=== PATIENT | female | born 1945 | race Caucasian/White ===

== ENCOUNTER 2016-04-25 16:44 | Outpatient (CLI) | payer MEDICARE ==
--- NOTE | 2016-04-25 17:58 | XRAY Preliminary Report ---
Exam: XR Foot 3 View LT IMPRESSION: Fifth metatarsal fracture. [facility] SITE ID: [id number]
--- NOTE | 2016-04-25 19:08 | XRAY Report ---
EXAM: LEFT FOOT RADIOGRAPHY EXAM DATE: 04/25/2016 05:33 PM. CLINICAL HISTORY: Pain after injury. COMPARISON: None. TECHNIQUE: 3 views. FINDINGS: Bones: Acute oblique fracture involving the mid third fifth metatarsal diaphysis with 5 mm medial and 6 mm proximal displacement of the distal fracture fragment relative to the proximal. Joints: Normal. No subluxations. Soft Tissues: Edema adjacent to the fracture. IMPRESSION: Fifth metatarsal fracture. [facility] Referring Provider Line: [phone] SITE ID: [id number]
== END 2016-04-25 16:45 | disposition home or self-care (01) ==
LOC: DI 16:44
PROVIDERS: ATTEND Podiatrist
DX: S92.352A Displaced fracture of fifth metatarsal bone, left foot, initial encounter for closed fracture (principal)

== ENCOUNTER 2016-06-27 14:48 | Outpatient (CLI) | payer MEDICARE | END 2016-06-27 14:49 | disposition home or self-care (01) | DX: S92.352D Displaced fracture of fifth metatarsal bone, left foot, subsequent encounter for fracture with routine healing (principal) ==

== ENCOUNTER 2017-05-26 12:13 | Outpatient (CLI) | payer MEDICARE ==
--- NOTE | 2017-05-26 12:59 | XRAY Report ---
TWO VIEW CHEST: 05/26/2017 CLINICAL INDICATION: Cough, remote history of positive PPD. FINDINGS: Frontal and lateral views of the chest demonstrate a normal cardiac silhouette. The lungs are clear. No effusion or pneumothorax is present. IMPRESSION: NORMAL CHEST. NO EVIDENCE OF ACTIVE TUBERCULOSIS. TD: 05/26/2017 12:58
== END 2017-05-26 12:14 | disposition home or self-care (01) ==
LOC: DI.S 12:13
PROVIDERS: ATTEND Physician Assistant
DX: R05 Cough (principal)
CPT/HCPCS: 71046

== ENCOUNTER 2017-08-17 10:42 | Outpatient (CLI) | payer MEDICARE ==
--- NOTE | 2017-08-18 13:50 | Mammography Report ---
Procedure Date: 08/17/2017 Accession Number: [id number] / [id number] Procedure: NICK - Screening Mammo Dig Bilat CPT Code: FULL RESULT: EXAM: Screening Mammo Dig Bilat DATE: 08/17/2017 11:07 AM CLINICAL HISTORY: 72-year-old with history of late childbearing for screening TECHNIQUE: Bilateral CC and MLO views were obtained. COMPARISON: 12/18/2015, 01/31/2014, 12/20/2012, 05/19/2011, 07/09/2009 FINDINGS: The breasts demonstrate diffuse fatty replacement bilaterally. Coarse and punctate, typically benign calcifications are present. No suspicious masses, clustered microcalcifications, or regions of architectural distortion are identified. IMPRESSION: Benign findings RECOMMENDATION: Routine annual screening unless otherwise clinically indicated. BIRADS CATEGORY 2: Benign findings STANDARD QUALIFYING STATEMENTS: 1. This examination was reviewed with the aid of Computer-Aided Detection (CAD). 2. A negative or benign imaging report should not delay biopsy if clinically suspicious findings are present. Consider surgical consultation if warrented. More than 5% of cancers are not identified by imaging. 3. Dense breasts may obscure an underlying neoplasm.
== END 2017-08-17 10:43 | disposition home or self-care (01) ==
LOC: DI 10:42
PROVIDERS: ATTEND Physician Assistant
DX: Z12.31 Encounter for screening mammogram for malignant neoplasm of breast (principal)
CPT/HCPCS: 77067

== ENCOUNTER 2017-09-19 10:50 | Outpatient (CLI) | payer MEDICARE ==
--- NOTE | 2017-09-19 13:27 | XRAY Report ---
Procedure Date: 09/19/2017 Accession Number: [id number] / [id number] Procedure: XRS - Hand 3 View LT CPT Code: FULL RESULT: EXAM: Hand 3 View LT DATE: 09/19/2017 11:04 AM CLINICAL HISTORY: L HAND INJURY-DIGIT 4 COMPARISON: 02/17/2010. TECHNIQUE: 3 views. FINDINGS: Bones: Normal. No fractures or bone lesions. Joints: Minimal degenerative changes of the distal interphalangeal joints most pronounced in the third ray. Soft Tissues: Normal. No soft tissue swelling. IMPRESSION: No acute hand injury is detected. [facility]
== END 2017-09-19 10:51 | disposition home or self-care (01) ==
LOC: DI.S 10:50
PROVIDERS: ATTEND Nurse Practitioner Family
DX: S69.92XA Unspecified injury of left wrist, hand and finger(s), initial encounter (principal)

== ENCOUNTER 2018-08-20 11:09 | Outpatient (CLI) | payer MEDICARE ==
--- NOTE | 2018-08-21 09:32 | Mammography Report ---
Reason: ENCOUNTER FOR SCREENING MAMMOGRAM FOR MALIGNANT NE Procedure Date: 08/20/2018 Accession Number: [id number] / [id number] Procedure: MGS - Screening Mammo Dig Bilat CPT Code: FULL RESULT: EXAM: Screening Mammo Dig Bilat DATE: 08/20/2018 11:34 AM CLINICAL HISTORY: Screening examination. History of late childbearing. TECHNIQUE: (B) - Bilateral CC and MLO views were obtained. COMPARISON: 08/17/2017 through 12/30/2012. PARENCHYMAL PATTERN: (A) - The breast(s) demonstrate(s) scattered fibroglandular densities. FINDINGS: A coarse typically benign calcification is seen in the left breast. There are no suspicious masses, calcifications, or areas of distortion. IMPRESSION: Benign findings. BI-RADS category 2. RECOMMENDATION: (ANNUAL) - Recommend routine annual screening mammography. BI-RADS CATEGORY: (2) - Benign Findings. STANDARD QUALIFYING STATEMENTS: 1. This examination was reviewed with the aid of Computer-Aided Detection (CAD). 2. A negative or benign imaging report should not preclude biopsy if clinically suspicious findings are present. 3. Dense breasts may obscure an underlying neoplasm. 4. This examination was reviewed without the aid of 3D breast imaging (tomosynthesis).
== END 2018-08-20 11:10 | disposition home or self-care (01) ==
LOC: DI.S 11:09
PROVIDERS: ATTEND Physician Assistant
DX: Z12.31 Encounter for screening mammogram for malignant neoplasm of breast (principal)
CPT/HCPCS: 77067

== ENCOUNTER 2018-08-20 11:10 | Outpatient (CLI) | payer MEDICARE ==
--- NOTE | 2018-08-20 14:38 | XRAY Report ---
Reason: UNSPECIFIED FRACTURE OF LEFT TOE,SUBSEQUENT ENCOUN Procedure Date: 08/20/2018 Accession Number: [id number] / [id number] Procedure: XRS - Foot 2 View LT CPT Code: FULL RESULT: EXAM: LEFT FOOT RADIOGRAPHY. EXAM DATE: 08/20/2018 11:34 AM. CLINICAL HISTORY: Unspecified fracture of left toe, subsequent encounter. COMPARISON: FOOT 3 VIEW LT 10/06/2016 9:46 AM. TECHNIQUE: 3 views. FINDINGS: Bones: Healed oblique fracture of the distal fifth metatarsal bone is seen. The remainder of bones appear intact. Joints: Normal. No subluxations. Soft Tissues: Normal. No soft tissue swelling. IMPRESSION: No acute findings. Old healed fifth metatarsal fracture seen. [facility]
== END 2018-08-20 11:11 | disposition home or self-care (01) ==
LOC: DI.S 11:10
PROVIDERS: ATTEND Physician Assistant
DX: S92.912D Unspecified fracture of left toe(s), subsequent encounter for fracture with routine healing (principal)

== ENCOUNTER 2019-11-07 12:25 | Outpatient (CLI) | payer MEDICARE | END 2019-11-07 12:26 | disposition home or self-care (01) | LOC: COV 12:25 | PROVIDERS: ATTEND Family Medicine | DX: Z01.812 Encounter for preprocedural laboratory examination (principal); Z20.828 Contact with and (suspected) exposure to other viral communicable diseases ==

== ENCOUNTER 2020-04-27 10:46 | Outpatient (CLI) | payer MEDICARE ==
--- NOTE | 2020-04-28 12:50 | Mammography Report ---
BILATERAL DIGITAL SCREENING MAMMOGRAM 3D/2D: 04/27/2020 CLINICAL: Routine screening. Comparison is made to exams dated: 08/20/2018 mammogram, 08/17/2017 mammogram, 12/18/2015 mammogram, and 01/31/2014 mammogram - [facility]. The tissue of both breasts is predominantly fat ty. No significant masses, calcifications, or other findings are seen in either breast. There has been no significant interval change. IMPRESSION: NEGATIVE There is no mammographic evidence of malignancy. A 1 year screening mammogram is recommended. This exam was interpreted at Station ID: [id number]. NOTE: For mammograms, a report in lay terms will be sent to the patient. Approximately 15% of breast malignancies will not be visualized mammographically. In the management of a palpable breast mass, a negative mammogram must not discourage biopsy of a clinically suspicious lesion. Electronically Signed By: Shayne Raymundo M.D. aty/penrad:04/27/2020 11:58:51 ACR BI-RADS Category 1: Negative 3341F PARENCHYMAL PATTERN: (F) - The breast(s) demonstrate(s) diffuse fatty replacement. BI-RADS CATEGORY: (1) - 1 RECOMMENDATION: (ANNUAL) - Recommend routine annual screening mammography. [id number] 1 year screening LATERALITY: (B)
== END 2020-04-27 10:47 | disposition home or self-care (01) ==
LOC: DI.S 10:46
PROVIDERS: ATTEND Nurse Practitioner Family
DX: Z12.31 Encounter for screening mammogram for malignant neoplasm of breast (principal)

== ENCOUNTER 2020-12-31 08:00 | Outpatient (CLI) | payer MEDICARE ==
--- NOTE | 2020-12-31 14:22 | XRAY Report ---
PROCEDURE: Chest 2 View X-Ray INDICATIONS: LEFT CHEST PX TECHNIQUE: 2 view(s) of the chest. COMPARISON: None. FINDINGS: SUPPORT DEVICES: None. LUNGS/PLEURA: Mildly coarsened interstitial markings. No focal consolidation, pleural effusion or spa ce-occupying pneumothorax. MEDIASTINUM: The cardiomediastinal silhouette is within normal limits. Calcified atheromatous change of the aorta. BONES/SOFT TISSUES: No acute abnormality. IMPRESSION: 1.No acute cardiopulmonary abnormality. Reviewed by: Gagan Nolan MD on 12/31/2020 2:21 PM PST Approved by: Gagan Nolan MD on 12/31/2020 2:21 PM PST Station ID: [id number]
== END 2020-12-31 23:59 | disposition home or self-care (01) ==
LOC: DI.S 08:00
PROVIDERS: ATTEND Physician Assistant
DX: R07.89 Other chest pain (principal)

== ENCOUNTER 2020-12-31 19:10 | Emergency (ER) | payer MEDICARE ==
[2020-12-31 19:18] VITALS: BP 148/126
--- NOTE | 2020-12-31 19:43 | ED Physician Documentation ---
PD HPI Fall - Stated complaint Stated Complaint: FALL - Chief complaint Chief Complaint: Back Pain - History obtained from History obtained from: Patient, Family - History of Present Illness Mechanism of injury: Slipped Pain level max: 8 Pain level now: 5 Quality of pain: Pain, Aching, Dull Associated symptoms: No: LOC, AMS, Amnesia, Seizures, Neck pain, Weakness, Paresthesias, Nausea / vomiting, Hematemesis, Abdominal distension Symptoms improve with: Rest Worsens with: Movement Contributing factors: No: Anticoagulated, Intoxicated - Additional information Additional information: Patient is a 75-year-old female who presents to the emergency department after a fall down several stairs yesterday. She is complaining of left rib pain. She states she was seen at the walk-in clinic and had a chest x-ray which did not show any fractures. She was sent here because she struck her head and they were concerned about skull fractures or intracranial bleeding. Patient is not on blood thinners. No loss of consciousness. No nausea or vomiting. The pain is worse with movement and better with rest. No neck or back pain. No numbness or tingling. No focal neurological deficits. 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 HEENT: Tonsil/Adenoidectomy - Present Medications Home Medications: Ambulatory Orders Medication Instructions Recorded Confirmed HYDROcod/ACETAM 5/325 [Ashford 5/325] 1 - 2 ea PO Q6H PRN #14 tablet 12/31/20 - Allergies Allergies/Adverse Reactions: Allergies Allergy/AdvReac Type Severity Reaction Status Date / Time penicillin G Allergy Mild Rash Verified 12/28/12 10:09 Sulfa (Sulfonamide Allergy Mild Hives Verified 12/28/12 10:10 Antibiotics) epinephrine AdvReac Anxiety Verified 12/31/20 19:13 - Social History Does the pt smoke?: No Smoking Status: Never smoker Does the pt drink ETOH?: Yes Does the pt have substance abuse?: No - Immunizations Immunizations are current?: No - POLST Patient has POLST: No PD ED PE NORMAL - Vitals Vital signs reviewed: Yes - General General: Alert and oriented X 3, No acute distress - HEENT HEENT: Atraumatic, PERRL, Moist mucous membranes - Neck Neck: Supple, no meningeal sign, No bony TTP - Cardiac Cardiac: RRR, Strong equal pulses - Respiratory Respiratory: No respiratory distress, Clear bilaterally - Back Back: No CVA TTP, No spinal TTP - Derm Derm: Warm and dry - Extremities Extremities: No deformity, Normal ROM s pain - Neuro Neuro: Alert and oriented X 3, bottom loader 2-12 intact, No motor deficit, No sensory deficit, Normal speech - Free text exam Free text exam: Small amount of bruising on the left chest wall, midaxillary line, approximately ribs 6 or 7. There is tenderness at the site. no crepitus Results - Vitals Vitals: Vital Signs - 24 hr 12/31/20 19:14 Temperature 36.7 C Heart Rate 73 Respiratory 18 Rate Blood Pressure 148/126 H O2 Saturation 99 Oxygen O2 Source Room air - Rads (name of study) Head CT Radiology: Final report received, EMP read contemporaneously, See rad report Chest CT without contrast Radiology: Final report received, EMP read contemporaneously, See rad report PD MEDICAL DECISION MAKING - ED course Complexity details: reviewed results, re-evaluated patient, considered differential, d/w patient ED course: No acute findings on head CT. Chest CT reveals a left fifth rib fracture. No pneumothorax. Pain well controlled. Will prescribe pain medication for home and have her follow-up with her doctor for further care. No other acute injuries. I am prescribing a short course of short-acting opioid pain medication for this patient. 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 I have discussed that the opioids are for short term therapy only, and will not be refilled from the ED. patient counseled regarding signs and symptoms for which I believe and urgent re-evaluation would be necessary. Patient with good understanding of and agreement to plan and is comfortable going home at this time This document was made in part using voice recognition software. While efforts are made to proofread this document, sound alike and grammatical errors may occur. Departure - Departure Disposition: 01 Home, Self Care Clinical Impression: Rib fracture Qualifiers: Encounter type: initial encounter Rib fracture type: single rib Fracture type: closed Laterality: right Qualified Code(s): S22.31XA - Fracture of one rib, right side, initial encounter for closed fracture Condition: Good Instructions: ED Fx Rib Follow-Up: KEMAR WADE ARNP [Primary Care Provider] - Within 1 week Prescriptions: HYDROcod/ACETAM 5/325 [Ashford 5/325] 1 - 2 ea PO Q6H PRN #14 tablet PRN Reason: Pain Comments: Follow up with your doctor in 1 week for repeat evaluation. You have fractured your 5th rib. This will heal on its own. Your prescription was sent to [facility] in [place] I am prescribing a short course of narcotic pain medication for you. These are potentially dangerous and addictive medications that should be used carefully. These medications may constipate you. Take an fzso-amg-rwpnlyq stool softener (docusate) twice daily with plenty of water while taking these medications. If you go 24 hours without a bowel movement, take ruoq-xsj-tookwby miralax, per package instructions. Do not drink or drive while taking these medications. If you received narcotic or sedating medications while in the emergency department, do not drive for 24 hours. Store this medication in a safe, secure place and out of reach of children. It is a violation of federal law to give or sell this medication to another per son or to use in a manner other than prescribed. The ED will not refill narcotic prescriptions, including prescriptions lost or stolen. To dispose of unwanted medications: 1. [facility] at [address] in [place] has a medication drop box. They accept prescription medications (in pill form) Monday through Monday 9:00 a.m. to 5:00 p.m. 2. The [facility] [employer] accepts prescription medications (in pill form only) for disposal year round. Call for more information. 3. Contact the [facility] for the next [facility] sponsored prescription drug collection event. , [phone], or [phone];
--- NOTE | 2020-12-31 21:34 | CT Report ---
PROCEDURE: HEAD WO INDICATIONS: fall, head injury TECHNIQUE: Noncontrast 4.5 mm thick angled axial sections acquired from the foramen magnum to the vertex. For r adiation dose reduction, the following was used: automated exposure control, adjustment of mA and/or kV according to patient size. COMPARISON: CT head 06/23/2019 FINDINGS: Image quality: Excellent. CSF spaces: Basal cisterns are patent. No extra-axial fluid collections. There is mild cerebral vol ume loss with prominence of ventricles and sulci. Brain: No intracranial hemorrhage, mass, or mass effect. Francois-white matter interface is preserved. Skull and face: Calvarium and visualized facial bones are intact, without suspicious lesions. Sinuses: Visualized sinuses and mastoids are clear. IMPRESSION: 1. No acute intracranial abnormality. Reviewed by: Goyo Jameson MD on 12/31/2020 9:33 PM [facility] Approved by: Goyo Jameson MD on 12/31/2020 9:33 PM [facility] Station ID: [id number]
--- NOTE | 2020-12-31 21:48 | CT Report ---
PROCEDURE: CHEST WO INDICATIONS: fall, L rib pain TECHNIQUE: Noncontrast 1mm axial images were acquired from the pulmonary apices to the posterior costophrenic an gles. Axial 5 mm soft tissue kernel reconstructions were performed as well as 8 mm axial MIP and cor onal and sagittal 5 mm reformations. For radiation dose reduction, the following was used: automate d exposure control, adjustment of mA and/or kV according to patient size. COMPARISON: Chest x-ray 12/31/2020, CT chest abdomen 08/21/2019. FINDINGS: Image quality: Excellent. Lungs and pleura: There is mild atelectasis and scarring the lung bases. There is new nodular thicke usha along the right minor fissure measuring up to 0.8 cm on series 4 image 148. No pleural effusions or pneumothorax. Central and peripheral airways are patent and normal in caliber. Mediastinum: Heart size is normal. No pericardial effusion. No mediastinal adenopathy by size crit eria. Thoracic aorta and central pulmonary arteries are normal in size. Esophagus is normal in autumn [place]ia. No hiatal hernia. Bones and chest wall: There is a mildly displaced fracture of the left fifth rib anterolaterally. No suspicious bony lesions. No vertebral body compression fractures. No axillary or supraclavicular a denopathy by size criteria. The thyroid demonstrates no discrete nodules. Abdomen: Visualized upper abdomen demonstrates a new hyperdense cyst or mass within the medial left kidney measuring up to 2.2 cm. IMPRESSION: 1. Mildly displaced fracture of the left fifth rib anterolaterally. 2. No evidence of pneumothorax or pleural effusions. 3. New focal nodular thickening along the right minor fissure measuring up to 0.8 cm. The findings ar e nonspecific and may represent an intramammary lymph node but a neoplastic process cannot be exclude d. Recommend short-term follow-up in 3-6 months to demonstrate resolution or stability. 4. New exophytic hyperdense cyst or mass within the visualized left kidney. Recommend initial further evaluation with a renal ultrasound. Reviewed by: Goyo Jameson MD on 12/31/2020 9:47 PM PST Approved by: Goyo Jameson MD on 12/31/2020 9:47 PM PST Station ID: [id number]
[2020-12-31] MEDS ORDERED: HYDROcod/ACETAM 5/325 MG TABLET PO STA (21:59)
== END 2020-12-31 22:13 | disposition home or self-care (01) ==
LOC: ED 19:10
DX: S22.31XA Fracture of one rib, right side, initial encounter for closed fracture (principal); W10.9XXA Fall (on) (from) unspecified stairs and steps, initial encounter; R07.89 Other chest pain
CPT/HCPCS: 70450; 71046; 71250; 99283; 99284; A9270

== ENCOUNTER 2021-01-19 08:05 | Outpatient (CLI) | payer MEDICARE ==
[2021-01-19 15:16] LABS: BASOPHILS # (AUTO) 0.1 10^3/uL (0.0-0.1); BASOPHILS % (AUTO) 0.4 %; EOSINOPHILS # (AUTO) 0.1 10^3/uL (0.0-0.7); EOSINOPHILS % (AUTO) 0.8 %; HCT - HEMATOCRIT 44.9 % (37.0-47.0); HGB - HEMOGLOBIN 14.4 g/dL (12.0-16.0); LYMPHOCYTES # (AUTO) 4.9 10^3/uL (1.5-3.5); LYMPHOCYTES % (AUTO) 43.9 %; MEAN CORPUSCULAR HGB CONC 32.1 g/dL (32.0-36.0); MEAN CORPUSCULAR VOLUME 96.6 fL (81.0-99.0); MEAN PLATELET VOLUME 11.6 fL (7.9-10.8); MONOCYTES # (AUTO) 0.7 10^3/uL (0.0-1.0); MONOCYTES % (AUTO) 6.6 %; NEUTROPHILS # (AUTO) 5.3 10^3/uL (1.5-6.6); NEUTROPHILS % (AUTO) 47.9 %; PLT - PLATELET COUNT 268 10^3/uL (130-450); RED BLOOD COUNT 4.65 10^6/uL (4.20-5.40); RED CELL DISTRIBUTION WIDTH 12.3 % (12.0-15.0); WHITE BLOOD COUNT 11.2 x10^3/uL (4.8-10.8)
[2021-01-19 16:06] LABS: ALBUMIN 3.9 g/dL (3.2-5.5); ALBUMIN/GLOBULIN RATIO 1.1 (1.0-2.2); CALCIUM 9.4 mg/dL (8.5-10.3); CREATININE 0.6 mg/dL (0.4-1.0); TOTAL PROTEIN 7.4 g/dL (6.7-8.2)
[2021-01-19 16:15] LABS: THYROID STIMULATING HORMONE 2.31 uIU/mL (0.34-5.60)
== END 2021-01-19 08:06 | disposition home or self-care (01) ==
LOC: LAB.S 08:05
PROVIDERS: ATTEND Nurse Practitioner Family
DX: R19.7 Diarrhea, unspecified (principal)
CPT/HCPCS: 36415; 80053; 84443; 85025

== ENCOUNTER 2021-04-13 12:05 | Outpatient (CLI) | payer MEDICARE ==
--- NOTE | 2021-04-14 08:56 | CT Report ---
PROCEDURE: CHEST WO INDICATIONS: ABN FINDINGS OF DIAGNOSTIC IMAGING OF THE LUNG TECHNIQUE: Noncontrast 1mm axial images were acquired from the pulmonary apices to the posterior costophrenic an gles. Axial 5 mm soft tissue kernel reconstructions were performed as well as 8 mm axial MIP and cor onal and sagittal 5 mm reformations. For radiation dose reduction, the following was used: automate d exposure control, adjustment of mA and/or kV according to patient size. COMPARISON: CT chest without, 12/31/2020 and 08/21/2019. FINDINGS: Image quality: Excellent. Lungs and pleura: There is a 0.8 cm nodule in the right middle lobe abutting the minor fissure, unch anged in size (series 4 image 153) since 12/31/2020. Subpleural septal thickening and mild pulmonary fibrosis bilaterally, primarily involving right middl e lobe, lingula and lower lobes. No acute air space opacities. No pleural effusions or pneumothorax. Central and peripheral airways are patent and normal in caliber. Mediastinum: Heart size is normal. No pericardial effusion. No mediastinal adenopathy by size crit eria. Thoracic aorta and central pulmonary arteries are normal in size. Esophagus is normal in autumn [place]ia. No hiatal hernia. Bones and chest wall: No suspicious bony lesions. No vertebral body compression fractures. There i s a healing fracture in the left fifth rib. No axillary or supraclavicular adenopathy by size criteri a. The thyroid is normal in size and there are no incidental findings. Abdomen: There is a 2.4 cm diameter exophytic nodule in the superior pole of the left kidney. IMPRESSION: 1. Stable 0.8 cm lung nodule in the right middle lobe. Please see enclosed follow-up recommendation. 2. Subpleural septal thickening and mild pulmonary fibrosis. 3. A 2.4 cm exophytic nodule in the superior pole of the left kidney. This could represent a cyst but solid mass cannot be excluded. Recommend ultrasound for follow-up evaluation. 4. Healing left fifth rib fracture. Fleischner Society criteria for SOLID lung nodule followup. Nodule size (mm)Low-risk patientHigh-risk patient "d4No follow-up neededFollow-up at 12 mo; if no change, no further follow-up >6-1Vvxjdi-yn CT at 12 mo; if no change, no further follow-up needed.Initial follow-up CT at 6-12 mo, then 18-24 mo if no change. >6-8Initial follow-up CT at 6-12 mo, then 18-24 mo if no change. Initial follow-up CT at 3-6 mo, then 9-12 mo and 24 mo if no change. >8Follow-up CT at 3, 9, 24 mo. Or PET and/or biopsy.Same as for low-risk pts. Reviewed by: Josiah Corral MD on 04/14/2021 8:55 AM PST Approved by: Josiah Corral MD on 04/14/2021 8:55 AM PST Station ID: [id number]
== END 2021-04-13 12:06 | disposition home or self-care (01) ==
LOC: DI 12:05
PROVIDERS: ATTEND Physician Assistant
DX: R91.1 Solitary pulmonary nodule (principal); J84.10 Pulmonary fibrosis, unspecified; N28.89 Other specified disorders of kidney and ureter; S22.32XD Fracture of one rib, left side, subsequent encounter for fracture with routine healing

== ENCOUNTER 2023-01-15 13:16 | Outpatient (CLI) | payer MEDICARE ==
--- NOTE | 2023-01-15 18:12 | Ultrasound Report ---
PROCEDURE: Bladder INDICATIONS: URINARY DISORDER TECHNIQUE: Real-time scanning was performed of the kidneys and bladder, with image documentation. COMPARISON: None FINDINGS: Kidneys: Not imaged. Bladder: Pre-void bladder volume is 177.4 mL. Post-void residual is 41.7 mL. Pre-void images demon strate no intraluminal masses or stones. On pre-void images, bilateral ureteral jets are noted with color Doppler interrogation. (Of note, ureteral jets may not be detectable in up to 25% of cases due to insufficient differences in specific gravity between ureteral and bladder urine). Miscellaneous: No free pelvic fluid. IMPRESSION: Moderate to large post void residual. Reviewed by: Keiry Bland MD on 01/15/2023 6:11 PM PST Approved by: Keiry Bland MD on 01/15/2023 6:11 PM PST Station ID: [id number]
== END 2023-01-15 13:17 | disposition home or self-care (01) ==
LOC: DI 13:16
PROVIDERS: ATTEND Internal Medicine
DX: N39.8 Other specified disorders of urinary system (principal)